=== PATIENT | female | born 1995 | race Caucasian/White ===

== ENCOUNTER 2018-08-23 05:45 | Emergency (ER) | payer OTHER ==
[2018-08-23 06:18] VITALS: BP 112/76; PULSE 86; TEMP 97.2; BMI 31.8
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
== END 2018-08-23 07:20 | disposition left against medical advice (07) ==
LOC: JER 05:45
DX: S09.92XA Unspecified injury of nose, initial encounter (principal); Y04.8XXA Assault by other bodily force, initial encounter; Y93.89 Activity, other specified; Y92.89 Other specified places as the place of occurrence of the external cause; Y99.8 Other external cause status; Y07.9 Unspecified perpetrator of maltreatment and neglect
CPT/HCPCS: 99281-25